=== PATIENT | female | born 1940 | race Caucasian/White ===

== ENCOUNTER → 2017-01-26 | Outpatient (CLI) | payer MEDICARE ==
--- NOTE | 2017-01-26 09:04 | MM ---
Reason for exam: history of breast cancer, mastectomy. Last mammogram was performed 1 year and 1 month ago. History: Patient is postmenopausal, has history of breast cancer at age 64, history of other cancer, and is nulliparous. Benign US RT VAD breast biopsy of the right breast, March 02, 2013. Benign US RT VAD breast biopsy of the right breast, March 02, 2013. Benign right breast aspiration of the right breast, March 02, 2013. Malignant US LT VAD breast biopsy of the left breast, November 29, 2012. Mastectomy of the left breast, November 2012. Malignant stereotactic core biopsy of the left breast, March 19, 2005. Benign stereotactic core biopsy of the right breast, March 19, 2005. Excisional biopsy of the left breast, 2004. Excisional biopsy of the right breast, 2004. Radiation therapy of the left breast, 2004. Took estrogen for 10 years. Took tamoxifen for 5 years beginning at age 64. Physical Findings: Nurse did not find any significant physical abnormalities on exam. MG 3D Diag Mammo W/Cad RT CC and MLO view(s) were taken of the right breast. Prior study comparison: January 10, 2016, right breast MG 3d diag mammo w/cad RT. December 27, 2014, right breast MG diagnostic mammo RT w CAD. The breast tissue is heterogeneously dense. This may lower the sensitivity of mammography. Finding: There are typically benign calcifications in the right breast. Previous mammotome biopsy in the right breast. No significant changes in finding since January 10, 2016 and December 27, 2014. These results were verbally communicated with the patient and result sheet given to the patient on 01/26/17. ASSESSMENT: Benign, BI-RAD 2 RECOMMENDATION: Follow-up diagnostic mammogram of the right breast in 1 year.
== END | disposition home or self-care (01) ==
LOC: RADMAMWWP 08:09
PROVIDERS: ATTEND Internal Medicine Hematology & Oncology
DX: Z08 Encounter for follow-up examination after completed treatment for malignant neoplasm (principal); R92.8 Other abnormal and inconclusive findings on diagnostic imaging of breast; Z85.3 Personal history of malignant neoplasm of breast
CPT/HCPCS: G0206; G0279

== ENCOUNTER → 2017-01-26 | Outpatient (CLI) | payer MEDICARE ==
--- NOTE | 2017-01-26 09:35 | XR ---
EXAMINATION TYPE: XR chest 2V DATE OF EXAM: 01/26/2017 9:28 AM COMPARISON: 01/10/2016 TECHNIQUE: PA and lateral views submitted. HISTORY: Hypertension, history of breast cancer FINDINGS: The lungs are clear and there is no pneumothorax, pleural effusion, or focal pneumonia. Hypertrophic and degenerative change of the spine. No compression deformities. Large hiatal hernia lopez spected. IMPRESSION: 1. No acute process.
== END | disposition home or self-care (01) ==
LOC: RADXRMAIN 09:15
PROVIDERS: ATTEND Internal Medicine Hematology & Oncology
DX: C50.112 Malignant neoplasm of central portion of left female breast (principal); D05.12 Intraductal carcinoma in situ of left breast; I10 Essential (primary) hypertension; D50.0 Iron deficiency anemia secondary to blood loss (chronic)
CPT/HCPCS: 71020

== ENCOUNTER → 2018-03-07 | Outpatient (CLI) | payer MEDICARE ==
--- NOTE | 2018-03-07 10:01 | XR ---
EXAMINATION TYPE: XR chest 2V DATE OF EXAM: 03/07/2018 COMPARISON: Chest x-ray January 26, 2017 HISTORY: History of hypertension and breast cancer. TECHNIQUE: Frontal and lateral views of the chest are obtained. FINDINGS: There is no focal air space opacity, pleural effusion, or pneumothorax seen. The cardiac silhouette size is within normal limits. Retrocardiac opacity consistent with moderate to large size hiatal hernia is redemonstrated The osseous structures are demineralized. Degenerative change in bot h shoulders and spine is present. IMPRESSION: No acute cardiopulmonary process. No significant change from prior.
== END | disposition home or self-care (01) ==
LOC: RADXRMAIN 09:18
PROVIDERS: ATTEND Internal Medicine Hematology & Oncology
DX: C50.112 Malignant neoplasm of central portion of left female breast (principal); D50.0 Iron deficiency anemia secondary to blood loss (chronic); I10 Essential (primary) hypertension
CPT/HCPCS: 71046

== ENCOUNTER → 2018-03-07 | Outpatient (CLI) | payer MEDICARE ==
--- NOTE | 2018-03-07 09:03 | MM ---
Reason for exam: additional evaluation requested from prior study. Last mammogram was performed 1 year and 1 month ago. History: Patient is postmenopausal, has history of breast cancer at age 64, history of other cancer, and is nulliparous. Benign US RT VAD breast biopsy of the right breast, March 02, 2013. Benign US RT VAD breast biopsy of the right breast, March 02, 2013. Benign right breast aspiration of the right breast, March 02, 2013. Malignant US LT VAD breast biopsy of the left breast, November 29, 2012. Mastectomy of the left breast, November 2012. Malignant stereotactic core biopsy of the left breast, March 19, 2005. Benign stereotactic core biopsy of the right breast, March 19, 2005. Excisional biopsy of the left breast, 2004. Excisional biopsy of the right breast, 2004. Radiation therapy of the left breast, 2004. Took estrogen for 10 years. Took tamoxifen for 5 years beginning at age 64. Physical Findings: Nurse did not find any significant physical abnormalities on exam. MG 3D Diag Mammo W/Cad RT CC and MLO view(s) were taken of the right breast. Prior study comparison: January 26, 2017, right breast MG 3d diag mammo w/cad RT. January 10, 2016, right breast MG 3d diag mammo w/cad RT. The breast tissue is heterogeneously dense. This may lower the sensitivity of mammography. Previous mammotome biopsy in the right breast x 2. There is no discrete abnormality. These results were verbally communicated with the patient and result sheet given to the patient on 03/07/18. ASSESSMENT: Benign, BI-RAD 2 RECOMMENDATION: Follow-up diagnostic mammogram of the right breast in 1 year.
== END | disposition home or self-care (01) ==
LOC: RADMAMWWP 08:18
PROVIDERS: ATTEND Internal Medicine Hematology & Oncology
DX: Z08 Encounter for follow-up examination after completed treatment for malignant neoplasm (principal); Z85.3 Personal history of malignant neoplasm of breast
CPT/HCPCS: 77065; G0279; 77061

== ENCOUNTER → 2019-04-05 | Outpatient (CLI) | payer MEDICARE ==
--- NOTE | 2019-04-05 09:23 | MM ---
Reason for exam: additional evaluation requested from prior study. Last mammogram was performed 1 year and 1 month ago. History: Patient is postmenopausal, has history of breast cancer at age 64, history of other cancer, and is nulliparous. Benign US RT VAD breast biopsy of the right breast, March 02, 2013. Benign US RT VAD breast biopsy of the right breast, March 02, 2013. Benign right breast aspiration of the right breast, March 02, 2013. Malignant US LT VAD breast biopsy of the left breast, November 29, 2012. Mastectomy of the left breast, November 2012. Malignant stereotactic core biopsy of the left breast, March 19, 2005. Benign stereotactic core biopsy of the right breast, March 19, 2005. Excisional biopsy of the left breast, 2004. Excisional biopsy of the right breast, 2004. Radiation therapy of the left breast, 2004. Took estrogen for 10 years. Took tamoxifen for 5 years beginning at age 64. Physical Findings: Nurse did not find any significant physical abnormalities on exam. MG 3D Diag Mammo W/Cad RT CC, MLO, and ML view(s) were taken of the right breast. Prior study comparison: March 07, 2018, right breast MG 3d diag mammo w/cad RT. January 26, 2017, right breast MG 3d diag mammo w/cad RT. The breast tissue is heterogeneously dense. This may lower the sensitivity of mammography. Multiple right biopsy markers. Post surgical change on the right. These results were verbally communicated with the patient and result sheet given to the patient on 04/05/19. ASSESSMENT: Benign, BI-RAD 2 RECOMMENDATION: Follow-up diagnostic mammogram of the right breast in 1 year.
== END | disposition home or self-care (01) ==
LOC: RADMAMWWP 08:01
PROVIDERS: ATTEND Internal Medicine Hematology & Oncology
DX: Z08 Encounter for follow-up examination after completed treatment for malignant neoplasm (principal); Z85.3 Personal history of malignant neoplasm of breast; Z90.12 Acquired absence of left breast and nipple
CPT/HCPCS: 77065; G0279; 77061

== ENCOUNTER → 2020-07-18 | Outpatient (CLI) | payer MEDICARE ==
--- NOTE | 2020-07-18 11:55 | MM ---
Reason for exam: additional evaluation requested from prior study. Last mammogram was performed 1 year and 3 months ago. History: Patient is postmenopausal, has history of breast cancer at age 64, history of other cancer, and is nulliparous. Benign US RT VAD breast biopsy of the right breast, March 02, 2013. Benign US RT VAD breast biopsy of the right breast, March 02, 2013. Benign right breast aspiration of the right breast, March 02, 2013. Malignant US LT VAD breast biopsy of the left breast, November 29, 2012. Mastectomy of the left breast, November 2012. Malignant stereotactic core biopsy of the left breast, March 19, 2005. Benign stereotactic core biopsy of the right breast, March 19, 2005. Excisional biopsy of the left breast, 2004. Excisional biopsy of the right breast, 2004. Radiation therapy of the left breast, 2004. Took estrogen for 10 years. Took tamoxifen for 5 years beginning at age 64. Physical Findings: Nurse did not find any significant physical abnormalities on exam. MG 3D Diag Mammo W/Cad RT CC and MLO view(s) were taken of the right breast. Prior study comparison: April 05, 2019, right breast MG 3d diag mammo w/cad RT. March 07, 2018, right breast MG 3d diag mammo w/cad RT. The breast tissue is heterogeneously dense. This may lower the sensitivity of mammography. Previous mammotome biopsy in the right breast. There is chronic nodularity in the right breast. There is no dominant lesion. No significant new findings when compared with previous films. These results were verbally communicated with the patient and result sheet given to the patient on 07/18/20. ASSESSMENT: Benign, BI-RAD 2 RECOMMENDATION: Follow-up diagnostic mammogram of the right breast in 1 year.
== END | disposition home or self-care (01) ==
LOC: RADMAMWWP 10:39
PROVIDERS: ATTEND Internal Medicine Hematology & Oncology
DX: Z08 Encounter for follow-up examination after completed treatment for malignant neoplasm (principal); Z85.3 Personal history of malignant neoplasm of breast
CPT/HCPCS: 77065; G0279; 77061

== ENCOUNTER → 2021-08-06 | Outpatient (CLI) | payer MEDICARE ==
--- NOTE | 2021-08-06 11:53 | MM ---
Reason for exam: additional evaluation requested from prior study. Last mammogram was performed 1 year and 1 month ago. History: Patient is postmenopausal, has history of breast cancer at age 64, history of other cancer, and is nulliparous. Benign US RT VAD breast biopsy of the right breast, March 02, 2013. Benign US RT VAD breast biopsy of the right breast, March 02, 2013. Benign right breast aspiration of the right breast, March 02, 2013. Malignant US LT VAD breast biopsy of the left breast, November 29, 2012. Mastectomy of the left breast, November 2012. Malignant stereotactic core biopsy of the left breast, March 19, 2005. Benign stereotactic core biopsy of the right breast, March 19, 2005. Excisional biopsy of the left breast, 2004. Excisional biopsy of the right breast, 2004. Radiation therapy of the left breast, 2004. Took estrogen for 10 years. Took tamoxifen for 5 years beginning at age 64. Physical Findings: Nurse did not find any significant physical abnormalities on exam. MG 3D Diag Mammo W/Cad RT CC, MLO, and XCCL view(s) were taken of the right breast. Prior study comparison: July 18, 2020, right breast MG 3d diag mammo w/cad RT. April 05, 2019, right breast MG 3d diag mammo w/cad RT. March 07, 2018, right breast MG 3d diag mammo w/cad RT. The breast tissue is heterogeneously dense. This may lower the sensitivity of mammography. Previous mammotome biopsy in the right breast. No significant new findings when compared with previous films. These results were verbally communicated with the patient and result sheet given to the patient on 08/06/21. ASSESSMENT: Benign, BI-RAD 2 RECOMMENDATION: Follow-up diagnostic mammogram of the right breast in 1 year.
== END | disposition home or self-care (01) ==
LOC: RADMAMWWP 10:43
PROVIDERS: ATTEND Internal Medicine Hematology & Oncology
DX: R92.2 Inconclusive mammogram (principal); Z85.3 Personal history of malignant neoplasm of breast
CPT/HCPCS: 77065; G0279; 77061

== ENCOUNTER → 2022-08-07 | Outpatient (CLI) | payer MEDICARE ==
--- NOTE | 2022-08-10 08:12 | MM ---
Reason for Exam: Screening (asymptomatic). Last screening mammogram was performed 12 month(s) ago. Patient History: Menarche at age 12. Patient has no children. Left ovary removed at age 52. Right ovary removed at age 52. Hysterectomy at age 52. Postmenopausal. Breast cancer, age 64. Other cancer. Previous chest radiation therapy at age 64. Previous chemotherapy at age 72. Patient used Estrogen for 10 years. Tamoxifen for 5 years from age 64 until age 69. 11/2012, Mastectomy on the Left side. 2004, Excisional Biopsy on the Right side. 2004, Excisional Biopsy on the Left side. 03/02/2013, Benign Core Biopsy on the right side. 03/02/2013, Benign Cyst Aspiration on the right side. 03/02/2013, Benign Core Biopsy on the right side. 11/29/2012, Malignant Core Biopsy on the left side. 03/19/2005, Malignant Stereotactic Core Biopsy on the left side. 03/19/2005, Benign Stereotactic Core Biopsy on the right side. 2004, Radiation Therapy on the left side. Prior Study Comparison: 04/05/2019 Right Diagnostic Mammogram, [facility]. 07/18/2020 Right Diagnostic Mammogram, [facility]. 08/06/2021 Right Diagnostic Mammogram, [facility]. Tissue Density: Right: The breast tissue is heterogeneously dense. This may lower the sensitivity of mammography. Findings: There is no suspicious group of microcalcifications or new suspicious mass in the right breast. Previous mammotome biopsy in the right breast. No significant change from prior exams. Overall Assessment: Benign, BI-RAD 2 Management: Screening Mammogram of the right breast in 1 year. A clinical breast exam by your physician is recommended on an annual basis and results should be correlated with mammographic findings. Electronically signed and approved by: Bruno Holman D.O.
== END | disposition home or self-care (01) ==
LOC: RADMAMWWP 08:48
PROVIDERS: ATTEND Internal Medicine Hematology & Oncology
DX: Z12.31 Encounter for screening mammogram for malignant neoplasm of breast (principal); Z78.0 Asymptomatic menopausal state
CPT/HCPCS: 77067

== ENCOUNTER → 2023-09-07 | Outpatient (CLI) | payer MEDICARE ==
--- NOTE | 2023-09-07 09:02 | MM ---
Reason for Exam: Screening (asymptomatic). Last mammogram was performed 1 year(s) and 1 month(s) ago. Patient History: Menarche at age 12. Patient has no children. Left ovary removed at age 52. Right ovary removed at age 52. Hysterectomy at age 52. Postmenopausal. Breast cancer, age 64. Other cancer, age 74. Previous chest radiation therapy at age 64. Previous chemotherapy at age 72. Patient used Estrogen for 10 years. Tamoxifen for 5 years from age 64 until age 69. 11/2012, Mastectomy on the Left side. 2004, Excisional Biopsy on the Right side. 2004, Excisional Biopsy on the Left side. 03/02/2013, Benign Core Biopsy on the right side. 03/02/2013, Benign Cyst Aspiration on the right side. 03/02/2013, Benign Core Biopsy on the right side. 11/29/2012, Malignant Core Biopsy on the left side. 03/19/2005, Malignant Stereotactic Core Biopsy on the left side. 03/19/2005, Benign Stereotactic Core Biopsy on the right side. 2004, Radiation Therapy on the left side. Prior Study Comparison: 01/26/2017 Right Diagnostic Mammogram, [facility]. 03/07/2018 Right Diagnostic Mammogram, [facility]. 04/05/2019 Right Diagnostic Mammogram, [facility]. 07/18/2020 Right Diagnostic Mammogram, [facility]. 08/06/2021 Right Diagnostic Mammogram, [facility]. 08/07/2022 Right MG 3D scr krissy unilateral w/cad., [facility]. Tissue Density: Right: The breast tissue is heterogeneously dense. This may lower the sensitivity of mammography. Findings: Analyzed By CAD. There is no suspicious group of microcalcifications or new suspicious mass in either breast. Chronic nodularity within the right breast. There are 3 biopsy clips within the right breast. Overall Assessment: Benign, BI-RAD 2 Management: Screening Mammogram of the right breast in 1 year. A clinical breast exam by your physician is recommended on an annual basis and results should be correlated with mammographic findings. Electronically signed and approved by: Bruno Holman D.O.
== END | disposition home or self-care (01) ==
LOC: RADMAMWWP 07:57
PROVIDERS: ATTEND Internal Medicine Hematology & Oncology
DX: Z12.31 Encounter for screening mammogram for malignant neoplasm of breast (principal); C50.112 Malignant neoplasm of central portion of left female breast; D50.0 Iron deficiency anemia secondary to blood loss (chronic); I10 Essential (primary) hypertension; Z78.0 Asymptomatic menopausal state
CPT/HCPCS: 77067

== ENCOUNTER 2024-01-14 07:54 | Day surgery (SDC) | payer MEDICARE ==
[~2024-01-14 07:54] MED LIST: ALPRAZolam 0.25 MG TAB PO PRN; HEPARIN SODIUM,PORCINE (1 ML) 2,500 UNIT in SODIUM CHLORIDE 0.9% 250 ML IRRIGATION PRN; HEPARIN SODIUM,PORCINE 10,000 UNIT in SODIUM CHLORIDE 0.9% 1,000 ML IRRIGATION PRN; NITROGLYCERIN SL TABS 0.4 MG TAB SUBLINGUAL PRN
[2024-01-14] MEDS: ALPRAZolam 0.5 MG TAB PO PRN (08:21)
[2024-01-14] MEDS: SODIUM CHLORIDE 0.9% 1,000 ML in EMPTY BAG 1 BAG IV SCH ×2 (08:23→12:50)
[2024-01-14] MEDS ORDERED: HEPARIN SODIUM 1,000 UN/ML (10ML VL) ONE (08:57)
[2024-01-14] MEDS ORDERED: VERAPAMIL 2.5 MG/ML 2 ML AMP ONE (08:57)
[2024-01-14] MEDS ORDERED: fentaNYL (PF) 50 MCG/ML 2 ML AMP ONE (08:58)
[2024-01-14] MEDS: fentaNYL (PF) 50 MCG/ML 2 ML AMP IVP ONE (09:28)
[2024-01-14] MEDS: LIDOCAINE 2% (PF) 20 MG/ML 5 ML VIAL SQ ONE (09:36)
[2024-01-14] MEDS: VERAPAMIL SYRINGE (5 MG/10 ML) INTRAARTER ONE (09:40)
[2024-01-14] MEDS: HEPARIN SODIUM 1,000 UN/ML (10ML VL) IVP ONE (09:44)
[2024-01-14] MEDS ORDERED: CLOPIDOGREL 75 MG TAB ONE (09:54)
[2024-01-14] MEDS: CLOPIDOGREL 75 MG TAB PO ONE (09:58)
[2024-01-14] MEDS: IOPAMIDOL-370 100ML BTL INJ ONE ×2 (10:11→10:36)
[2024-01-14] MEDS ORDERED: ATROPINE SULFATE 0.1 MG/ML 10ML SYRINGE IV PRN (10:49)
[2024-01-14] MEDS ORDERED: NITROGLYCERIN SL TABS 0.4 MG TAB SUBLINGUAL PRN (10:49)
[2024-01-14] MEDS ORDERED: MAG HYDROX/AL HYDROX/SIMETH 30 ML CUP PO PRN (10:49)
[2024-01-14] MEDS ORDERED: RX INFO: IV CONTRAST WAS GIVEN 1 EACH MISC MISCELLANE PRN (10:49)
[2024-01-14] MEDS ORDERED: ZOLPIDEM 5 MG TAB PO PRN (10:49)
--- NOTE | 2024-01-14 10:58 | P.CARDCATH ---
Date of Procedure: 01/14/24 Description of Procedure: Cardiac Catheterization: The patient is an 83-year-old female with known history of hypertension and hyperlipidemia who has been complaining of progressive dyspnea and had an abnormal MPI. Recommendations were made regarding cardiac catheterization, the risks and the complications were discussed with the patient who is in full understanding and agreement. Procedure Description: Patient was brought to dental laboratory manager in fasting semi-sedated state after receiving Fentanyl and Benadryl achieiving moderate conscious sedated state. Using Xylocaine Anesthesia and modified Seldinger technique, a 6-Cymraes sheath was introduced in the right radial artery . Subsequently, selective coronary angiography was performed using a 5-Cymraes 3.5 bend Kendra catheter. Multiple views of the coronary artery including hemiaxial views were obtained. The right Kendra catheter was used to cross the aortic valve and LVEDP was calculated. PCI: After removing the catheters a 6 Cymraes EBU 3.75 guiding catheter was introduced and after cannulating the left main 0.014 BMW J-wire was positioned in the distal LAD. Subsequently a [employer] eye IVUS catheter was introduced and images were obtained, subsequently a 3.5 x 15 mm Xience clay point was deployed at 16 quincy, after removing the balloon a 3.25 x 12 mm Xience clay point was deployed distal to the first 1 and dilated at 16 quincy. Repeat IVUS imaging was performed and subsequently 3.5 x 15 mm NC trek balloon was advanced and 1 inflation at 10 quincy in the distal segment was performed and a 4.0 x 15 mm NC trek balloon was advanced and 1 inflation in the proximal segment was performed. Repeat IVUS imaging was performed and revealed successful deployment of the stents. After removing the wire images were obtained and revealed stable successful stenting. Following that, catheter and sheath were removed. Hemostasis was obtained with deployment of vascular band . There was no immediate complication. Patient was returned to room in stable condition. Of note, the patient received a total of 8000 units of intravenous heparin as well as intra-arterial verapamil. She received an oral loading dose of clopidogrel, her ACT was monitored. She had no chest discomfort but she had EKG changes with the inflations that resolved at the end of the procedure. Findings: Fluoroscopy: Calcification of the proximal LAD was noted Left main: This is a large size vessel, bifurcating into LAD and left circumflex, left main has no obstructive disease LAD: This is a large size vessel, reaching to the apex, giving rise to 2 diagonal branch. The LAD proximally has an eccentric 80% plaque, the rest of the vessel has no high-grade stenosis Left circumflex: This is a large nondominant vessel, giving rise to a large obtuse marginal branch distally gives rise to a small obtuse marginal branch. The left circumflex and its branches have no obstructive disease RCA: This is a moderately sized vessel, dominant giving rise to right PDA. There is mild intimal plaque in the mid segment of the RCA of 20% with no high- grade stenosis Left Ventriculogram: Not performed Hemodynamics: There was no gradient across the aortic valve, LVEDP was 12-16 mmHg Conclusion: 1. Significant disease in the proximal LAD 2. Mild disease in the RCA 3. Successful stenting of the proximal LAD with reduction of stenosis from 80% to less than 5% with adjunctive intravascular ultrasound imaging 4. Right dominance Recommendations: The patient will continue on aspirin and clopidogrel for 6 months without any interruption in addition to aggressive coronary risks modification, attempting to maintain LDL below 70 mg/dL. The findings and the recommendations were discussed with the patient and the family and they were in full understanding and agreement. Duration of sedation is 60 minutes.
[2024-01-14] MEDS: ASPIRIN 325 MG TAB PO ONE (12:50)
[2024-01-14 14:55] VITALS: BMI 33.7
[2024-01-14] MEDS: SYMBICORT 160-4.5 MCG INHALER INHALATION SCH (20:36)
[2024-01-14] MEDS: LATANOPROST 0.005% OPHTH DROPS 2.5 ML BTL RIGHT EYE SCH (21:51)
[2024-01-15 06:32] LABS: African American GFR (CKD) >90 (>60 ml/min/1.73 sqM); Anion Gap 3 mmol/L; Blood Urea Nitrogen 24 mg/dL (7-17); Calcium 8.5 mg/dL (8.4-10.2); Carbon Dioxide 26 mmol/L (22-30); Chloride 109 mmol/L (98-107); Glucose 89 mg/dL (74-99); Non-African American GFR(CKD) 83 (>60 ml/min/1.73 sqM); Potassium 3.2 mmol/L (3.5-5.1); Sodium 138 mmol/L (137-145)
[2024-01-15] MEDS: ATORVASTATIN 40 MG TAB PO SCH (08:57)
[2024-01-15] MEDS: ASPIRIN 81 MG PO SCH (08:57)
[2024-01-15] MEDS: CLOPIDOGREL 75 MG TAB PO SCH (08:57)
[2024-01-15] MEDS: LOSARTAN-HCTZ 50-12.5 MG 1 EACH TAB PO SCH (08:57)
[2024-01-15] MEDS: POTASSIUM CHLORIDE ER 20 MEQ TAB.ER PO STA (12:20)
--- NOTE | 2024-01-15 13:29 | P.DS ---
Providers Date of admission: 01/14/2024 Expected date of discharge: 01/15/24 Attending physician: Callie Jeronimo Consults: 01/14/24 10:49 Consult Physician Routine Consulting Provider: [facility] Reason/Comments: Post Interventional patient Do you want consulting provider notified?: Already Contacted Primary care physician: Julio Cesar Salazar [facility] Course: This is a pleasant 83-year-old female with a history of hypertension and hyperlipidemia. She has been complaining of progressive dyspnea. Underwent MPI which came back to be abnormal. She was then recommended to undergo cardiac catheterization. This revealed significant disease approximately, mild disease in the RCA and she subsequently underwent successful stenting of the proximal LAD with IVUS. She developed hematoma in the right hand postprocedure and continues to have significant ecchymosis of that hand but the hand is soft and mobile with no paresthesias or change in temperature. Her right radial pulse is palpable and normal. She has been initiated on dual antiplatelet therapy as well as statin. She has not been able to tolerate atorvastatin in the past and will be discharged home on rosuvastatin. Overall she is feeling well. She denies any chest discomfort, shortness of breath, orthopnea or PND. She has had no dizziness, lightheadedness or syncope. She denies any palpitations. Her lungs are clear heart with regular S1-S2 and no significant murmur. She has no lower extremity edema. She will follow-up in the office in 1 week. Plan - Discharge Summary Discharge Rx Participant: No New Discharge Prescriptions: New Nitroglycerin Sl Tabs [Nitrostat] 0.4 mg SUBLINGUAL Q5M PRN #25 tab PRN Reason: Chest Pain Clopidogrel [Plavix] 75 mg PO DAILY #90 tab Rosuvastatin Calcium 20 mg PO HS #90 tab Continue Losartan/Hydrochlorothiazide [Losartan-Hctz 100-25 mg Tab] 1 tab PO QAM Vit C/E/Zn/Coppr/Lutein/Zeaxan [Preservision Areds 2 Softgel] 2 dose PO QAM Multivitamin [Multivitamins Adult Gummies] 1 each PO QAM Budesonide/Formoterol Fumarate [Symbicort 160-4.5 Mcg Inhaler] 2 puff INHALATION BID Brimonidine Tartrate (Unknown) 1 drop RIGHT EYE BID Bimatoprost [Lumigan 0.01% Oph Soln] 1 drop RIGHT EYE HS Aspirin [Adult Low Dose Aspirin EC] 81 mg PO QAM Acetaminophen [Tylenol Arthritis] 13,000 mg PO QAM Biotin (Dose Unknown) 2 dose PO QAM Discontinued Meloxicam 15 mg PO QAM Discharge Medication List Losartan/Hydrochlorothiazide [Losartan-Hctz 100-25 mg Tab] 1 tab PO QAM 03/17/16 [History] Acetaminophen [Tylenol Arthritis] 13,000 mg PO QAM 01/10/24 [History] Aspirin [Adult Low Dose Aspirin EC] 81 mg PO QAM 01/10/24 [History] Bimatoprost [Lumigan 0.01% Oph Soln] 1 drop RIGHT EYE HS 01/10/24 [History] Biotin (Dose Unknown) 2 dose PO QAM 01/10/24 [History] Brimonidine Tartrate (Unknown) 1 drop RIGHT EYE BID 01/10/24 [History] Budesonide/Formoterol Fumarate [Symbicort 160-4.5 Mcg Inhaler] 2 puff INHALATION BID 01/10/24 [History] Multivitamin [Multivitamins Adult Gummies] 1 each PO QAM 01/10/24 [History] Vit C/E/Zn/Coppr/Lutein/Zeaxan [Preservision Areds 2 Softgel] 2 dose PO QAM 01/10/24 [History] Clopidogrel [Plavix] 75 mg PO DAILY #90 tab 01/15/24 [Rx] Nitroglycerin Sl Tabs [Nitrostat] 0.4 mg SUBLINGUAL Q5M PRN #25 tab 01/15/24 [Rx] Rosuvastatin Calcium 20 mg PO HS #90 tab 01/15/24 [Rx] Follow up Appointment(s)/Referral(s): Callie Jeronimo MD [STAFF PHYSICIAN] - 01/24/24 2:15 pm Patient Instructions/Handouts: Coronary Artery Disease (DC), *Surgery [facility] - After Heart Catheterization - Mri Supervisor Instructions Activity/Diet/Wound Care/Special Instructions: heart healthy, low sodium diet Discharge Disposition: HOME SELF-CARE
[2024-01-15 14:12] VITALS: BP 145/90; PULSE 83; RESP 20; TEMP 98.4
== END 2024-01-15 16:07 | disposition home or self-care (01) ==
LOC: CATHCVL 07:54 → 6NMEDSUR 10:34 → CATHCVL 01-15 16:07
PROVIDERS: ATTEND Internal Medicine Interventional Cardiology
DX: I25.10 Atherosclerotic heart disease of native coronary artery without angina pectoris (principal); I10 Essential (primary) hypertension; E78.5 Hyperlipidemia, unspecified; Z85.3 Personal history of malignant neoplasm of breast; Z87.891 Personal history of nicotine dependence; Z88.8 Allergy status to other drugs, medicaments and biological substances; Z79.899 Other long term (current) drug therapy; Z98.890 Other specified postprocedural states
CPT/HCPCS: 94640 ×2; 94760; 92978; 93458; 80048; C9600; C1769 ×3; C1887; C1894; C1725 ×3; C1753; C1874 ×2; J3010; J1644; Q9967; J2001

== ENCOUNTER → 2024-10-27 | Outpatient (CLI) | payer MEDICARE ==
--- NOTE | 2024-11-02 16:32 | MM ---
Reason for Exam: Screening (asymptomatic). Last mammogram was performed 1 year(s) and 1 month(s) ago. Patient History: Menarche at age 12. Patient has no children. Left ovary removed at age 52. Right ovary removed at age 52. Hysterectomy at age 52. Postmenopausal. Breast cancer, left, age 64. Other cancer, age 74. Previous chest radiation therapy at age 64. Previous chemotherapy at age 72. Patient used Estrogen for 10 years. Tamoxifen for 5 years from age 64 until age 69. 11/2012, Mastectomy on the Left side. 2004, Excisional Biopsy on the Right side. 2004, Excisional Biopsy on the Left side. 03/02/2013, Benign Core Biopsy on the right side. 03/02/2013, Benign Cyst Aspiration on the right side. 03/02/2013, Benign Core Biopsy on the right side. 11/29/2012, Malignant Core Biopsy on the left side. 03/19/2005, Malignant Stereotactic Core Biopsy on the left side. 03/19/2005, Benign Stereotactic Core Biopsy on the right side. 2004, Radiation Therapy on the left side. Prior Study Comparison: 08/06/2021 Right Diagnostic Mammogram, [facility]. 08/07/2022 Right MG 3D scr krissy unilateral w/cad., [facility]. 09/07/2023 Right MG 3D scr krissy unilateral w/cad., [facility]. Tissue Density: Right: The breasts are heterogeneously dense, which may obscure small masses. Findings: Analyzed By CAD. Chronic nodularity. 3 microclips right breast from prior biopsies. There is no suspicious group of microcalcifications or new suspicious mass in either breast. Overall Assessment: Benign, BI-RAD 2 Management: Screening Mammogram of the right breast in 1 year. Patient should continue monthly self-breast exams. A clinical breast exam by your physician is recommended on an annual basis. This exam should not preclude additional follow-up of suspicious palpable abnormalities. [facility], , 11/02/2024 4:30 PM. Electronically signed and approved by: Miladis Dobson M.D. Radiologist
== END | disposition home or self-care (01) ==
LOC: RADMAMWWP 09:22
PROVIDERS: ATTEND Internal Medicine Hematology & Oncology
DX: Z12.31 Encounter for screening mammogram for malignant neoplasm of breast (principal); Z90.722 Acquired absence of ovaries, bilateral; Z78.0 Asymptomatic menopausal state; Z85.3 Personal history of malignant neoplasm of breast; R92.331 Mammographic heterogeneous density, right breast; Z98.82 Breast implant status
CPT/HCPCS: 77067